=== PATIENT | male | born 1935 | race Caucasian/White ===

== ENCOUNTER 2022-02-02 09:27 | Emergency (ER) | payer MEDICARE, OTHER ==
[~2022-02-02] VITALS: Ht 182.9 cm; Wt 66.4 kg
[2022-02-02] MEDS ORDERED: MECLIZINE HCL25 M1 PO (11:28)
--- NOTE | 2022-02-02 17:42 | EKG ---
[facility] [address] [place] [address] Signed Normal sinus rhythm Normal ECG No previous ECGs available Confirmed by ANTHONY BLACKBURN MD ([id number]) on 02/02/2022 5:41:53 PM Electronically Signed By: ANTHONY BLACKBURN MD 02/02/221741 PATIENT NAME: SHANDA SIDDIQI ARIANEBRIGID Electrocardiogram DATE OF : 37 PHYSICIAN: ANTHONY BLACKBURN MD REPORT #: [id number] REPORT IS CONFIDENTIAL AND NOT TO BE RELEASED WITHOUT AUTHORIZATION
== END 2022-02-02 12:01 | disposition home or self-care (01) ==
LOC: ED 09:27
DX: R42 Dizziness and giddiness (principal); R53.1 Weakness
CPT/HCPCS: 93005; 93010; 99284-25; A9270